=== PATIENT | female | born 1950 | race Native Hawaiian/Other Pacific Islander ===

== ENCOUNTER 2021-05-04 20:23 | Emergency (ER) | payer OTHER ==
[~2021-05-04] VITALS: Ht 162.6 cm; Wt 125.2 kg
[2021-05-04 21:01] LABS: PLATELET COUNT 227 K/uL (152-353)
[2021-05-04 21:45] VITALS: BP 162/63; TEMP 98.5
[2021-05-05] MEDS ORDERED: EZETIMIBE10 MG PO (12:45)
[2021-05-05] MEDS ORDERED: FLUOXETINE HYDR40 MG PO (12:46)
[2021-05-05] MEDS ORDERED: FAMOTIDINE20 MG PO (12:46)
[2021-05-05] MEDS ORDERED: KP FOLIC ACID1 MG PO (12:47)
[2021-05-05] MEDS ORDERED: FUROSEMIDE40 MG PO (12:48)
[2021-05-05] MEDS ORDERED: ALLO100T22 PO (12:58)
[2021-05-05] MEDS ORDERED: AMLODIPINE BESYLATE PO (13:00)
[2021-05-05] MEDS ORDERED: ARTIFICIAL TEAR1.4 % OPTH (13:13)
[2021-05-05] MEDS ORDERED: LIPITOR10 MG PO (13:26)
[2021-05-05] MEDS ORDERED: BUSPIRONE HYDR7.5 MG PO (13:27)
[2021-05-05] MEDS ORDERED: CALCITRIOL0.25 MCG PO (13:28)
[2021-05-05] MEDS ORDERED: CLOPIDOGREL75 MG PO (13:29)
[2021-05-05] MEDS ORDERED: ZINC SULFATE220 M2 PO (13:30)
[2021-05-05] MEDS ORDERED: DOK100 MG PO (13:30)
[2021-05-05] MEDS ORDERED: EUTHYROX175 MCG PO (13:31)
[2021-05-05] MEDS ORDERED: MELATONIN10 M1 PO (13:38)
[2021-05-05] MEDS ORDERED: OXYB5TAB64 PO (13:39)
[2021-05-05] MEDS ORDERED: TIZANIDINE HYDRO4 M1 PO (13:40)
[2021-05-05] MEDS ORDERED: POTASSIUM CHLO10 ME1 PO (13:40)
[2021-05-05] MEDS ORDERED: ASCO500T18 PO (13:42)
[2021-05-05] MEDS ORDERED: VITAMIN D2000 UNIT PO (13:43)
== END 2021-05-04 21:45 | disposition still patient (30) ==
LOC: ED 20:23
PROVIDERS: Hospitalist
DX: R45.851 Suicidal ideations (principal); F32.89 Other specified depressive episodes; R46.89 Other symptoms and signs involving appearance and behavior; Z11.52 Encounter for screening for COVID-19; Z04.6 Encounter for general psychiatric examination, requested by authority
CPT/HCPCS: 36415; 80053; 85027; 87635; 93005; 99283; U0003